=== PATIENT | female | born 2000 | race Caucasian/White ===

== ENCOUNTER 2020-06-18 07:45 | Outpatient (CLI) | payer OTHER ==
--- NOTE | 2020-06-18 08:38 | MRI ---
MR the lumbar spine without contrast: 06/18/2020 History: Left-sided hip pain, back pain, radiculopathy COMPARISON: None available TECHNIQUE: Multiplanar multisequence MR images were obtained of lumbar spine without IV contrast FINDINGS: On the basis of 5 lumbar type vertebral bodies, conus medullaris terminates at theT12 level. Sagittal STIR imaging demonstrates no focal area of osseous marrow edema. T12-L1:Unremarkable L1-2:Unremarkable L2-3:Unremarkable aside from minimal facet hypertrophy on the left and possible small posterior left facet joint synovial cyst formation measuring in the 5 mm range. L3-4:Mild bilateral facet hypertrophy. Intervertebral disc height and signal intensity within normal limits with no central canal or neural foraminal stenosis. L4-5:There is disc space narrowing with disc desiccation. Prominent disc bulge with central/left para central disc herniation. Findings result in moderate central canal stenosis with significant left lateral recess stenosis. Bilateral facet hypertrophy and hypertrophy of the ligamentum flavum, left g reater than right. No significant neural foraminal stenosis. L5-S1:Mild bilateral facet hypertrophy with fluid signal intensity within bilateral facet joints. Par tial disc desiccation with mild disc bulge. No significant central canal or neural foraminal stenosis. Image retroperitoneal structures demonstrateno acute findings. 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
== END 2020-06-18 07:46 | disposition home or self-care (01) ==
LOC: TBSIIMAG 07:45
PROVIDERS: ATTEND Orthopaedic Surgery
DX: M51.16 Intervertebral disc disorders with radiculopathy, lumbar region (principal); M48.061 Spinal stenosis, lumbar region without neurogenic claudication
CPT/HCPCS: 72148